=== PATIENT | male | born 1960 | race Caucasian/White ===

== ENCOUNTER 2017-05-29 12:14 | Emergency (ER) | payer BC, OTHER ==
--- NOTE | 2017-05-29 12:30 | ED Physician Documentation ---
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 no cuts nor scratches.) Where injury occurred: Work Timing - onset: How many days ago (3) Timing - duration: Days (3) Timing - details: Abrupt onset, Still present Associated symptoms: Swelling, Discolored (red). No: Weakness, Numbness Contributing factors: No: Anticoagulated Similar symptoms before: Has not had sx before (has had similar in great toe base, but not in knee.) Recently seen: Clinic (seen by PMD for this yesterday and had xrays and given Rx for Keflex due to concern of infection.) Review of Systems Constitutional: denies: Fever Nose: denies: Rhinorrhea / runny nose, Congestion Cardiac: denies: Palpitations GI: reports: Vomiting. denies: Nausea, Diarrhea : denies: Dysuria, Frequency PD PAST MEDICAL HISTORY - Past Medical History Past Medical History: No Musculoskeletal: Gout Other Past Medical History: gout - Past Surgical History Past Surgical History: Yes - Present Medications Home Medications: Ambulatory Orders Medication Instructions Recorded Confirmed Dexamethasone [Decadron] 4 mg PO DAILY #5 tablet 05/29/17 HYDROcod/ACETAM 5/325 [Delaplaine 5/325] 1 tab PO Q6H PRN #15 tablet 05/29/17 Indomethacin 25 mg PO BID #30 capsule 05/29/17 Indomethacin 25 mg PO DAILY 05/29/17 05/29/17 Sulfamethox/Trimeth 800/160 1 tab PO BID 05/29/17 05/29/17 [Bactrim Ds] traMADol [Ultram] 50 mg PO BID 05/29/17 05/29/17 - Allergies Allergies/Adverse Reactions: Allergies Allergy/AdvReac Type Severity Reaction Status Date / Time No Known Drug Allergies Allergy Verified 05/29/17 12:21 - Social History Does the pt smoke?: Yes Smoking Status: Current every day smoker Does the pt drink ETOH?: No Does the pt have substance abuse?: No - Immunizations Immunizations are current?: No PD ED PE NORMAL - Vitals Vital signs reviewed: Yes - General General: Alert and oriented X 3, No acute distress, Well developed/nourished - Neck Neck: Supple, no meningeal sign - Cardiac Cardiac: RRR, No murmur - Respiratory Respiratory: Clear bilaterally - Back Back: No CVA TTP - Derm Derm: Normal color, Warm and dry Results - Vitals Vitals: Oxygen O2 Source Room air PD MEDICAL DECISION MAKING - ED course Complexity details: considered differential (tried tapping fluid from right bursa but did not get any out (perhaps fluid too thick for needle). So presume gout or inflammatory, but can stay on prior abx anyway.), d/w patient Departure - Departure Disposition: Home, Self Care Clinical Impression: Bursitis, prepatellar, right Condition: Stable Record reviewed to determine appropriate education?: Yes Instructions: ED Bursitis Follow-Up: Rupa Elizabeth MD [Primary Care Provider] - Prescriptions: Dexamethasone [Decadron] 4 mg PO DAILY #5 tablet HYDROcod/ACETAM 5/325 [Delaplaine 5/325] 1 tab PO Q6H PRN #15 tablet PRN Reason: Pain Indomethacin 25 mg PO BID #30 capsule Comments: I did not get any fluid out of the knee right here; presume it was thicker or such. So will need to presume inflammatory cause with possibility of infection. Continue the current antibiotic you have. Add Indomethacin and decadron for inflammation, presuming gout or inflammatory bursitis. Add Tylenol or hydrocodone as needed for pains. Recheck if not improved over the next couple of days. Return if fevers, expanding redness, other joints, etc. Discharge Date/Time: 05/29/17 13:29
[2017-05-29] MEDS ORDERED: HYDROcod/ACETAM 5/325 MG TABLET PO STA (12:52)
[2017-05-29] MEDS ORDERED: DEXAMETHASONE 10 MG/ML VIAL PO STA (12:52)
[2017-05-29] MEDS ORDERED: NAPROXEN 250 MG TABLET PO STA (12:52)
[2017-05-29] MEDS ORDERED: NAPROXEN 250 MG TABLET PO ONE (13:17)
[2017-05-29] MEDS ORDERED: HYDROcod/ACETAM 5/325 MG TABLET ONE (13:18)
[2017-05-29] MEDS ORDERED: CHERRY SYRUP 10 ML UDC PO ONE (13:18)
[2017-05-29] MEDS ORDERED: DEXAMETHASONE 10 MG/ML VIAL ONE (13:18)
[2017-05-29 13:31] VITALS: BP 147/94
== END 2017-05-29 13:29 | disposition home or self-care (01) ==
LOC: ED 12:14
DX: M70.41 Prepatellar bursitis, right knee (principal); M10.9 Gout, unspecified; F17.200 Nicotine dependence, unspecified, uncomplicated
CPT/HCPCS: 20610; 99283; A9270

== ENCOUNTER 2017-06-06 16:21 | Outpatient (CLI) | payer OTHER ==
--- NOTE | 2017-06-07 17:45 | MRI Report ---
EXAM: RIGHT KNEE MRI WITHOUT CONTRAST EXAM DATE: 06/06/2017 05:21 PM. CLINICAL HISTORY: KNEE PAIN, RIGHT. COMPARISON: None. TECHNIQUE: Multiplanar, multisequence T1-weighted and fluid-sensitive sequences of the knee without c ontrast. Other: None. FINDINGS: Bones: No fractures or subluxations. Mild osteophytic lipping in the femoral condyles. No marrow alisa a. No bone lesions. Articular Cartilage: Grade 3 cartilaginous degeneration with thinning and irregular surface in the tr ochlea and the medial femoral condyle. Medial Meniscus: The medial meniscus is intact. Lateral Meniscus: The lateral meniscus is intact. Cruciate Ligaments: The anterior and posterior cruciate ligaments are intact. Collateral Ligaments: The medial collateral and lateral collateral ligamentous structures are intact. Tendons: Intrasubstance longitudinal partial-thickness tear in the quadriceps tendon with fusiform en largement and mildly increases signal. The patellar, semimembranosus, and popliteus tendons are unrem arkable. Musculature: Muscular strain with mild edema in the distal part of the quadriceps. No fatty atrophy. Other: Nonspecific mild effusion. No popliteal cyst. There is a lobulated septated ganglion cyst supe rior to the lateral head of gastrocnemius measuring about 3 x 2.1 x 1.6 cm adjacent to the popliteal vessels without surrounding edema. No loose bodies. The medial and lateral retinacula, patellofemora l ligaments and iliotibial band are intact. There is prepatellar bursitis with a prepatellar focal fl uid collection about 3.1 cm in length, 0.9 cm in AP dimension and 2.7 cm in width containing debris a nd with quite extensive adjacent subcutaneous edema which extends to both sides of the knee. The fat pads are unremarkable. IMPRESSION: 1. Intrasubstance longitudinal partial-thickness tear in the quadriceps tendon with fusiform enlargem ent and mildly increases signal. 2. Muscular strain with mild edema in the distal part of the quadriceps. 3. Prepatellar bursitis with a prepatellar focal fluid collection about 3.1 cm in length, 0.9 cm in A P dimension and 2.7 cm in width containing debris and with quite extensive adjacent subcutaneous alisa a which extends to both sides of the knee. 4. Grade 3 cartilaginous degeneration with thinning and irregular surface in the trochlea and the med ial femoral condyle. 5. A lobulated septated ganglion cyst superior to the lateral head of gastrocnemius measuring about 3 x 2.1 x 1.6 cm adjacent to the popliteal vessels without surrounding edema. It is of doubtful clinic al significance. No Bird's cyst. 6. The menisci, collateral and cruciate ligaments are intact. [facility] MUSCULOSKELETAL RADIOLOGY SECTION Referring Provider Line: [phone] SITE ID: [id number]
== END 2017-06-06 16:22 | disposition home or self-care (01) ==
LOC: DI 16:21
PROVIDERS: ATTEND Family Medicine
DX: S76.111A Strain of right quadriceps muscle, fascia and tendon, initial encounter (principal); M70.41 Prepatellar bursitis, right knee; M23.8X1 Other internal derangements of right knee; M67.461 Ganglion, right knee

== ENCOUNTER 2018-09-14 10:40 | Observation (INO) | payer BC, OTHER ==
[2018-09-14] MEDS ORDERED: NITROGLYCERIN SL 0.4 MG TABLET SL STA (10:53)
[2018-09-14] MEDS ORDERED: ASPIRIN CHEW 81 MG TABLET PO STA (10:53)
--- NOTE | 2018-09-14 10:55 | ED Physician Documentation ---
PD HPI CHEST PAIN - Stated complaint Stated Complaint: CHEST PX/LIGHT HEADED - Chief complaint Chief Complaint: Cardiac - History obtained from History obtained from: Patient, Family - History of Present Illness Timing - onset: How many hours ago (2) Timing - onset during: Light activity Timing - duration: Hours (2) Timing - details: Gradual onset Pain level max: 5 Pain level now: 2 Quality: Pressure, Tightness Location: Left chest Radiation: Other (non-radiating) Improved by: Nothing Worsened by: Other (nothing) Associated symptoms: Nausea, Feeling faint / dizzy (lightheaded today). No: Shortness of air, Diaphoresis, Vomiting Similar symptoms before: Has not had sx before Recently seen: Not recently seen - Additional information Additional information: smokes 1.5 ppd. not on any meds at home. Review of Systems Ten Systems: 10 systems reviewed and negative Constitutional: denies: Fever, Chills Ears: denies: Ear pain Nose: denies: Rhinorrhea / runny nose, Congestion Respiratory: denies: Cough, Hemoptysis, Wheezing : denies: Dysuria Skin: denies: Rash Musculoskeletal: denies: Neck pain, Back pain Neurologic: denies: Headache PD PAST MEDICAL HISTORY - Past Medical History Past Medical History: No Musculoskeletal: Gout - Past Surgical History Past Surgical History: Yes - Present Medications Home Medications: Ambulatory Orders Medication Instructions Recorded Confirmed Indomethacin 25 mg PO BID PRN 09/14/18 09/14/18 - Allergies Allergies/Adverse Reactions: Allergies Allergy/AdvReac Type Severity Reaction Status Date / Time No Known Drug Allergies Allergy Verified 09/14/18 10:47 - Living Situation Living Situation: reports: With family Living Arrangement: reports: At home - Social History Does the pt smoke?: Yes Smoking Status: Current every day smoker Does the pt drink ETOH?: No Does the pt have substance abuse?: No - Family History Family history: reports: Non contributory - Immunizations Immunizations are current?: No PD ED PE NORMAL - Vitals Vital signs reviewed: Yes - General General: Alert and oriented X 3, No acute distress, Well developed/nourished - HEENT HEENT: PERRL - Neck Neck: Supple, no meningeal sign - Cardiac Cardiac: RRR, No murmur, Strong equal pulses - Respiratory Respiratory: No respiratory distress, Clear bilaterally - Abdomen Abdomen: Soft, Non tender, Non distended - Back Back: No spinal TTP - Derm Derm: Warm and dry, No rash - Extremities Extremities: No edema, No calf tenderness / cord - Neuro Neuro: Alert and oriented X 3 - Psych Psych: Normal mood, Normal affect Results - Vitals Vitals: Vital Signs - 24 hr 09/14/18 09/14/18 09/14/18 10:44 10:45 10:55 Temperature 36.9 C Heart Rate 87 75 Respiratory 18 16 Rate Blood Pressure 185/115 H 135/88 H Blood Pressure 154/90 H [Right] O2 Saturation 92 99 09/14/18 09/14/18 09/14/18 11:00 11:15 11:30 Temperature Heart Rate 75 75 72 Respiratory 16 16 16 Rate Blood Pressure 146/87 H 138/84 H 115/82 H Blood Pressure [Right] O2 Saturation 95 95 95 09/14/18 09/14/18 11:45 12:16 Temperature Heart Rate 73 68 Respiratory 16 12 Rate Blood Pressure 123/78 125/86 H Blood Pressure [Right] O2 Saturation 93 Oxygen O2 Source Room air - EKG (time done) 1046 Rate: Rate (enter#) (78) Rhythm: NSR [place]: Normal Intervals: Normal RI QRS: Normal Ischemia: Normal ST segments Computer interpretation: Agree with computer - Labs Labs: Laboratory Tests 09/14/18 09/14/18 09/14/18 10:51 10:51 10:51 WBC 14.6 H RBC 5.54 Hgb 17.9 Hct 51.9 MCV 93.6 MCH 32.3 H MCHC 34.5 RDW 13.0 Plt Count 273 MPV 8.3 Neut # (Auto) 9.9 H Lymph # (Auto) 3.1 Taylor # (Auto) 1.4 H Eos # (Auto) 0.1 Baso # (Auto) 0.1 Absolute Nucleated RBC 0.01 Nucleated RBC % 0.1 Sodium 136 Potassium 3.8 Chloride 103 Carbon Dioxide 25 Anion Gap 8.0 BUN 17 Creatinine 0.7 Estimated GFR (MDRD) 116 Glucose 114 H Calcium 9.6 Total Bilirubin 0.4 AST 24 ALT 23 Alkaline Phosphatase 79 Troponin I < 0.04 Total Protein 8.2 Albumin 4.6 Globulin 3.6 Albumin/Globulin Ratio 1.3 Lipase 41 - Rads (name of study) cxr Radiology: Prelim report reviewed, EMP read contemporaneously, See rad report (no acute disease) PD MEDICAL DECISION MAKING - ED course Complexity details: reviewed results, re-evaluated patient, considered different ial, d/w patient, d/w family ED course: 58-year-old male with chest pain today. His heart score is 4. His initial troponin is negative. Will place in observation for rule out MN. Will also require a cardiac stress test in the near future if it is unable to be performed during his hospitalization. given ASA in the ED. Chest pain resolved with ntg and asa. Blood pressure improved. This document was made in part using voice recognition software. While efforts are made to proofread this document, sound alike and grammatical errors may occur. Departure - Departure Disposition: ED Place in Observation Clinical Impression: Chest pain Qualifiers: Chest pain type: unspecified Qualified Code(s): R07.9 - Chest pain, unspecified Condition: Stable
[2018-09-14 11:11] LABS: BASOPHILS # (AUTO) 0.1 10^3/uL (0.0-0.1); BASOPHILS % (AUTO) 0.9 %; EOSINOPHILS # (AUTO) 0.1 10^3/uL (0.0-0.7); EOSINOPHILS % (AUTO) 0.5 %; HGB - HEMOGLOBIN 17.9 g/dL (14.0-18.0); LYMPHOCYTES # (AUTO) 3.1 10^3/uL (1.5-3.5); LYMPHOCYTES % (AUTO) 21.1 %; MEAN CORPUSCULAR HEMOGLOBIN 32.3 pg (27.0-31.0); MEAN CORPUSCULAR HGB CONC 34.5 g/dL (32.0-36.0); MEAN CORPUSCULAR VOLUME 93.6 fL (80.0-94.0); MEAN PLATELET VOLUME 8.3 fL (7.4-11.4); MONOCYTES # (AUTO) 1.4 10^3/uL (0.0-1.0); MONOCYTES % (AUTO) 9.5 %; NEUTROPHILS # (AUTO) 9.9 10^3/uL (1.5-6.6); PLT - PLATELET COUNT 273 10^3/uL (130-450); RED BLOOD COUNT 5.54 10^6/uL (4.70-6.10); WHITE BLOOD COUNT 14.6 x10^3/uL (4.8-10.8)
[2018-09-14 11:42] LABS: ALBUMIN 4.6 g/dL (3.2-5.5); ALBUMIN/GLOBULIN RATIO 1.3 (1.0-2.2); BILIRUBIN,TOTAL 0.4 mg/dL (0.2-1.0); CALCIUM 9.6 mg/dL (8.5-10.3); CREATININE 0.7 mg/dL (0.6-1.2); TOTAL PROTEIN 8.2 g/dL (6.7-8.2)
--- NOTE | 2018-09-14 12:19 | XRAY Report ---
Reason: Chest Pain Procedure Date: 09/14/2018 Accession Number: [id number] / [id number] Procedure: XR - Chest 1 View X-Ray CPT Code: 24617 FULL RESULT: EXAM: CHEST RADIOGRAPHY EXAM DATE: 09/14/2018 12:06 PM. CLINICAL HISTORY: Chest Pain. COMPARISON: None. TECHNIQUE: 1 view. FINDINGS: Lungs/Pleura: No focal opacities evident. No pleural effusion. No pneumothorax. Mediastinum: Within exam limitations, the cardiomediastinal contour is normal. Other: None. IMPRESSION: 1. No acute disease in the chest. [facility]
[2018-09-14] MEDS ORDERED: PROCHLORPERAZINE 10 MG/2 ML VIAL IVP PRN (13:22)
[2018-09-14] MEDS ORDERED: ACETAMINOPHEN 325 MG TABLET PO PRN (13:22)
[2018-09-14] MEDS ORDERED: ZOLPIDEM 5 MG TABLET PO PRN (13:22)
[2018-09-14] MEDS ORDERED: SODIUM CHLORIDE FLUSH 0.9% 10 ML SYRINGE IVP PRN (13:22)
[2018-09-14] MEDS ORDERED: NITROGLYCERIN SL 0.4 MG TABLET SL PRN (13:25)
[2018-09-14] MEDS ORDERED: NICOTINE 21 MG PATCH TOP STA (13:32)
[2018-09-14] MEDS: SODIUM CHLORIDE FLUSH 0.9% 10 ML SYRINGE IVP SCH ×2 (17:33→23:45)
[2018-09-14] MEDS: FAMOTIDINE 20 MG TABLET PO SCH (20:23)
--- NOTE | 2018-09-15 04:26 | HISTORY & PHYSICAL EXAMINATION ---
DATE OF SERVICE: 09/14/2018 Physician: Nicole Hough MD HISTORY OF PRESENT ILLNESS: This is a 58-year-old, white male with a history of smoking, elevated cholesterol but not on treatment, and obesity. The patient presents with chest pain that is unrelenting over approximately 2 hours. 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 This morning when he woke up, he had no appetite and felt "blah." He got a little short of breath with his typical activity starting work, and then developed his chest discomfort, which lasted much longer than the typical several minutes. It was unrelenting for approximately 2 hours. Because of the combination of symptoms, he went home from work to rest, called his , and she came and picked him up and took him to the emergency room. He was given 4 baby aspirin, as well as 1 sublingual nitroglycerin in the ER. His chest pain went from a 4/10 down to a 1-2/10, but never completely went away since it started this morning. The pain is not positional or pleuritic. There is no GI complaint with it, and he is not short of breath at rest. There has been no diaphoresis or any palpitations. He has noticed that it feels better when the photovoltaic fabrication technician was placing the probe over his intercostal space and, following that, he also can press on a certain area and make the pain disappear. PAST MEDICAL HISTORY: None. ALLERGIES: NONE. MEDICATIONS 1. Naprosyn p.r.n. 2. Indomethacin p.r.n. 3. Tylenol p.r.n. FAMILY HISTORY: Father of sudden cardiac arrest at the age of 77. Mother of COPD at age of 72. He has 1 son in his 30s with some type of cardiac condition, but he does not know what. He has a brother and a sister who have no cardiac complaints. SOCIAL HISTORY: He is a 1-1/2 pack a day smoker, but states that he does not inhale the cigarette nearly at all. He used to be a 3 beer drinker a day, but now has decreased down to nothing or only social alcohol intake. REVIEW OF SYSTEMS: A comprehensive review of systems was performed and the pertinent positives are listed above. The rest are negative. PHYSICAL EXAMINATION GENERAL: White male who appears in no distress, despite having 1-2/10 chest discomfort currently. VITAL SIGNS: Blood pressure 140/80, heart rate in the 60s in sinus rhythm, afebrile, room air saturation 95%. HEENT: Unremarkable. NECK: Without JVD or carotid bruits. LUNGS: Clear. HEART: Sounds normal. No murmur, rub or gallop. ABDOMEN: Soft, obese. No organomegaly and normal bowel sounds. EXTREMITIES: No clubbing, cyanosis, or edema. NEUROLOGIC: Intact. LABORATORY DATA: Troponin is not detectable x1. Electrolytes normal. BUN and creatinine normal. Liver tests normal. Lipase normal. White blood count 14.6, hemoglobin 17, platelet count normal at 273. No INR was done. Chest x-ray unremarkable. EKG: Normal sinus rhythm and within normal limits. IMPRESSION/DIAGNOSES 1. Chest pain. 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 2. Tobacco abuse. 3. Elevated cholesterol history. PLAN: Place the patient in Observation status, on telemetry. Cycle troponins x3. Obtain an Echo to rule out pericardial effusion or any regional LV wall motion abnormalities. If the troponins and Echo are unremarkable, then proceed to a stress test in the morning. Check a fasting lipid panel in the morning. Begin a nicotine patch topically. Continue with baby aspirin daily and sublingual nitroglycerin p.r.n. CODE STATUS: FULL CODE. DEEP VENOUS THROMBOSIS PROPHYLAXIS: Pharmacotherapy with Lovenox. ATTESTATION: The patient is expected to be discharged or transferred to another facility within 96 hours: Yes. cc: Rupa Elizabeth MD TD: 09/14/2018 17:52 [facility]
[2018-09-15 06:09] LABS: BUN - BLOOD UREA NITROGEN 15 mg/dL (6-20); CALCIUM 8.8 mg/dL (8.5-10.3); CARBON DIOXIDE - CO2 23 mmol/L (21-32); CHLORIDE 104 mmol/L (101-111); CHOL/HDL RATIO 8.7 (<5.0); CHOLESTEROL 243 mg/dL; CREATININE 0.7 mg/dL (0.6-1.2); GFR - MDRD 116 (>89); GLUCOSE 112 mg/dL (70-100); HDL CHOLESTEROL 28 mg/dL; LDL CHOLESTEROL,CALCULATED 157 mg/dL; LDL/HDL RATIO 5.6 (<3.6); SODIUM 135 mmol/L (135-145); VLDL CHOLESTEROL 58 mg/dL
[2018-09-15] MEDS: SODIUM CHLORIDE FLUSH 0.9% 10 ML SYRINGE IVP SCH (08:32)
[2018-09-15] MEDS: FAMOTIDINE 20 MG TABLET PO SCH (08:32)
[2018-09-15] MEDS ORDERED: ENOXAPARIN 40 MG/0.4 ML SYRINGE SUBQ SCH (09:00)
[2018-09-15] MEDS ORDERED: POLYETHYLENE GLYCOL 3350 17 GM PACKET PO SCH (09:00)
[2018-09-15] MEDS ORDERED: ASPIRIN CHEW 81 MG TABLET PO SCH (09:00)
--- NOTE | 2018-09-15 13:12 | Nuclear Medicine Report ---
Reason: Chest pain Procedure Date: 09/15/2018 Accession Number: [id number] / [id number] Procedure: NM - Myocardial Perfusion STR/RST CPT Code: FULL RESULT: EXAM: SINGLE-ISOTOPE EXERCISE STRESS TEST. SINGLE-ISOTOPE AND ONE-DAY REST/STRESS MYOCARDIAL PERFUSION SCANS WITH TOMOGRAPHIC IMAGING, QUANTITATIVE ANALYSIS, WALL MOTION ANALYSIS AND CALCULATION OF EJECTION FRACTION. EXAM DATE: 09/15/2018 12:41 PM. CLINICAL HISTORY: Chest pain. COMPARISON: None. TECHNIQUE: A rest myocardial perfusion scan was done with tomography after the intravenous administration of 9.6 mCi Tc-99m sestamibi. After an appropriate delay, a treadmill exercise stress was performed according to department protocol. The patient exercised for 6 minutes and 40 seconds. The maximum heart rate was 146 bpm, which was 89% of the maximum predicted heart rate of 163 bpm. At approximately peak heart rate, 42.4 mCi of Tc-99m sestamibi was injected for stress myocardial perfusion scan. Motion correction was applied when appropriate. Gated tomographic images were obtained for wall motion analysis and computation of left ventricular ejection fraction. FINDINGS: No fixed or reversible perfusion defects are evident. Computer analysis: Summed stress score 2 Summed rest score 0 Summed difference score 2 Wall motion analysis demonstrates no focal wall motion abnormality The left ventricular end-diastolic volume is 91 cc. The left ventricular end-systolic volume is 33 cc. The left ventricular ejection fraction is calculated to be 64%. IMPRESSION: 1. No scintigraphic findings to indicate myocardial ischemia. Negative for infarct. 2. Normal left ventricular ejection fraction of 64%. 3. Normal segmental and global wall motion. 4. Normal left ventricular cavity size, no change with stress. 5. Based on computer analysis, normal exam with mild ischemia. Based on visual analysis, this is believed to be an overestimate. [facility]
--- NOTE | 2018-09-15 13:31 | CARDIAC PROCEDURE NOTE ---
DATE OF SERVICE: 09/15/2018 Physician: Nicole Hough MD INDICATIONS: Chest pain. CARDIAC RISK FACTORS: Male gender, family history of heart disease, smoker, hyperlipidemia uncontrolled. SUMMARY: After signing informed consent, the patient underwent a Saturnino - protocol treadmill stress test with nuclear myocardial imaging. Resting heart rate 67, peak heart rate 146 (90% predicted maximum heart rate for age). Resting blood pressure 146/82. Peak blood pressure 210/85. The patient exercised for 6 minutes and 30 seconds on a Saturnino-protocol treadmill stress test. He achieved 90% PMHR and 8 METS. The patient had baseline 1-2/10 chest pain. This increased to 4/10 at peak. In recovery, this dropped back down to 1-2/10 after 4 minutes. The patient had moderate shortness of breath at peak and described his difficulty level as "very hard." O2 saturation at peak was 94% on room air. Baseline EKG: Normal sinus rhythm and within normal limits. EKG AT PEAK: [address] depressions in the inferior leads and leads V5 and V6. SUMMARY: 1. Fair exercise tolerance. 2. Excessively hypertensive blood pressure response to exercise. 3. Atypical chest pain, was present at rest, despite a normal EKG. Chest pain did increase with exertion, however. 4. Borderline abnormal ischemic changes by EKG criteria at an adequate level of stress. 5. Nuclear images reported separately. TD: 09/15/2018 12:59 MTDD
--- NOTE | 2018-09-15 13:44 | Discharge Plan ---
Discharge Plan Disposition: 01 Home, Self Care Condition: Stable Diet: Cardiac Activity Restrictions: Activity as Tolerated Shower Restrictions: No Driving Restrictions: No Instruction Topics: Heart Risk, Cholesterol Lifestyle Change, Foods Heart Healthy, ED Hypertension New Begin Tx Additional Instructions or Follow Up instructions: You were in Observation for evaluating chest pain. The blood tests, EKG and Echo showed no heart attack and the stress test was negative for coronary blockages. The pain did sound atypical for cardiac pain too, since it was affected by pressing on the spot on your chest. You can take some Motrin or Aleve, to treat presumed musculoskeletal pain or inflammation. You DO have risk factors for developing coronary artery blockages however, and these 4 should get managed, in order to decrease your chance of getting coronary heart disease. 1) Change your diet to improve your high cholesterol and triglycerides, with less red meat, less milk and less potatoes. You may need medications too. 2) Stop smoking 3) Lose weight 4) Decrease your salt intake and have your high blood pressure managed by your PCP. Consider taking 1 baby aspirin daily lifelong, for heart attack and stroke prevention. See your PCP in follow-up in 1-2 weeks. If you have new or worsening symptoms, come to the ER. No Smoking: If you smoke, Please STOP! Call for help. Follow-up with: Rupa Elizabeth MD [Primary Care Provider] -
[2018-09-15 14:05] VITALS: BP 158/78
--- NOTE | 2018-09-17 19:52 | DISCHARGE SUMMARY ---
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 The patient presented with complaints of chest pain that were unrelenting over 2 hours without associated symptoms. The chest pain was similar to prior episodes that began 3 months ago when he thought he had pulled a muscle. In the past they only lasted under a minute, but because of 2 hours of symptoms, he presented to the emergency room. There was also a complaint of fatigue over a week and new dyspnea during construction work. He was placed in Observation for evaluation of the above symptoms. HOSPITAL COURSE AND DISCHARGE DIAGNOSES: 1. Chest pain. There were features that sounded like angina but a strong nonanginal feature was that the pain subsided when it was pressed on and despite receiving nitroglycerin sublingual with improvement from 12/08 to 10/10 discomfort, the pain continued throughout the night and the next morning. Despite this persistent symptom, his troponins were negative x3. He did have risk factors for coronary disease, however, including sudden cardiac in his father at the age of 77. He therefore underwent stress testing while here. The patient completed 8 METS and achieved 90% predicted maximum heart rate on a treadmill stress test. There was no worsening of his constant chest pain and he had mild shortness of breath. The EKG portion showed nonspecific inferolateral ST scooping changes, but his nuclear myocardial perfusion scan showed no evidence of reversible ischemia and normal ejection fraction. 2. Tobacco abuse. The patient was on a nicotine patch while here and was advised to discontinue this since he is a 1.5 pack-a-day smoker. 3. Elevated cholesterol history. The patient reported being told in the past that it was elevated, but never being on treatment. A lipid panel was done here. This showed total cholesterol 243, LDL 157, triglycerides 292 and HDL 28. I advised that he adjust his diet for better risk factor management, to include less red meat, less dairy products (milk) and less starches (potatoes). LABORATORY AND IMAGING: Reviewed and summarized above. MEDICATIONS AT THE TIME OF DISCHARGE: 1. Tylenol p.r.n. 2. Indomethacin p.r.n. 3. Naprosyn p.r.n. 4. One baby aspirin daily was advised to start now and to be used lifelong. CONDITION AT DISCHARGE: Stable. PHYSICAL EXAMINATION: VITAL SIGNS: Blood pressure 158/78, pulse of 82, afebrile, room air saturation 94%. HEENT: Unremarkable. NECK: Without JVD or carotid bruits. CHEST: Clear. HEART: Sounds normal. ABDOMEN: Obese, benign. EXTREMITIES: Without edema. NEUROLOGIC: Intact. FOLLOWUP: He was advised to see his PCP for management of this presumed musculoskeletal pain and for further evaluation and management if needed. CODE STATUS: FULL CODE. Time required to complete the entire discharge, chart review, patient education, dictation: 45 minutes. cc: Rupa Elizabeth MD TD: 09/17/2018 19:03 MTDD
== END 2018-09-15 14:35 | disposition home or self-care (01) ==
LOC: ED 10:40 → OBS 13:22
PROVIDERS: ADMIT Internal Medicine; ATTEND Internal Medicine
DX: R07.9 Chest pain, unspecified (principal); F17.210 Nicotine dependence, cigarettes, uncomplicated; E78.00 Pure hypercholesterolemia, unspecified; Z71.3 Dietary counseling and surveillance; E66.9 Obesity, unspecified; Z68.34 Body mass index [BMI] 34.0-34.9, adult; I10 Essential (primary) hypertension; Z82.49 Family history of ischemic heart disease and other diseases of the circulatory system; M10.9 Gout, unspecified
CPT/HCPCS: 36415; 71045; 78452; 80048; 80053; 80061; 83690; 84484; 85025; 93005; 93017; 93306; 96372; 99284; 99285; A9270; A9500; G0378; J1650; 83721

== ENCOUNTER 2020-03-11 07:54 | Emergency (ER) | payer BC ==
--- NOTE | 2020-03-11 07:56 | ED Physician Documentation ---
PD HPI CHEST PAIN - Stated complaint Stated Complaint: CHEST PX - History obtained from History obtained from: Patient - History of Present Illness Timing - onset: How many days ago (3-4) Timing - onset during: Rest. No: Exertion (He has not noticed the pain with exertion. He did some vigorous gardening yesterday and states he "got up a sweat" and felt fine. He is noticed the pain mainly at rest and some with deep breathing. No cough/URI symptoms. No noted injury.) Timing - duration: Days Timing - details: Gradual onset, Still present (more consistent dull aching this morning. And he took BP (which he does not do very often) and noted it to be elevated, which concerned him more in conjunction with the pain.), Waxing and waning Quality: Aching, Sharp, Pain. No: Tightness, Tearing Location: Substernal, Left chest Radiation: No: Neck, Back Improved by: No: Rest Worsened by: No: Exertion Associated symptoms: No: Shortness of air, Nausea, Feeling faint / dizzy, General Weakness, Cough Similar symptoms before: No diagnosis (He had a similar pain about a year and a half ago and was evaluated in the emergency department and overnight in the hospital with a rule out [place] by enzymes and then a nuclear stress test that did not show any reversible ischemia. He has not had any exertional symptoms meanwhile.) Recently seen: Not recently seen Review of Systems Constitutional: denies: Fever, Chills, Myalgias Nose: denies: Rhinorrhea / runny nose, Congestion Throat: denies: Sore throat Cardiac: reports: Chest pain / pressure. denies: Palpitations, Pedal edema, Calf pain Respiratory: denies: Dyspnea, Cough GI: denies: Abdominal Pain, Nausea, Vomiting : denies: Dysuria, Frequency Skin: denies: Rash, Lesions Neurologic: denies: Generalized weakness, Focal weakness, Numbness, Near syncope, Altered mental status, Headache Endocrine: denies: Weight loss, Weight gain PD PAST MEDICAL HISTORY - Past Medical History Cardiovascular: None Respiratory: None Neuro: None Endocrine/Autoimmune: None Musculoskeletal: Gout - Past Surgical History Past Surgical History: Yes Ortho: Other - Present Medications Home Medications: Ambulatory Orders Medication Instructions Recorded Confirmed Acetaminophen 325 - 650 mg PO PRN PRN 09/14/18 09/14/18 Naproxen 375 mg PO BID #20 tablet 07/12/20 - Allergies Allergies/Adverse Reactions: Allergies Allergy/AdvReac Type Severity Reaction Status Date / Time No Known Drug Allergies Allergy Verified 03/11/20 08:01 - Social History Does the pt smoke?: Yes Smoking Status: Current every day smoker Does the pt drink ETOH?: Yes ETOH Use: Wine (occasional glass) Does the pt have substance abuse?: Yes Substance Use and Type: Marijuana - Immunizations Immunizations are current?: No PD ED PE NORMAL - Vitals Vital signs reviewed: Yes - General General: Alert and oriented X 3, No acute distress, Well developed/nourished - HEENT HEENT: Pharynx benign - Neck Neck: Supple, no meningeal sign, No adenopathy - Cardiac Cardiac: RRR, No murmur - Respiratory Respiratory: Clear bilaterally, Other (some minimal chestwall tenderness left sternal border with rash nor redness. ) - Abdomen Abdomen: Soft, Non tender - Derm Derm: Normal color, Warm and dry - Extremities Extremities: No deformity, No tenderness to palpate, Normal ROM s pain, No edema, No calf tenderness / cord - Neuro Neuro: Alert and oriented X 3, No motor deficit, Normal speech Results - Vitals Vitals: Vital Signs - 24 hr 03/11/20 03/11/20 03/11/20 07:58 08:01 08:31 Temperature 36.8 C Heart Rate 73 72 66 Respiratory 18 18 16 Rate Blood Pressure 181/99 H 181/99 H 137/76 H O2 Saturation 97 95 99 03/11/20 03/11/20 09:04 09:27 Temperature 36.8 C Heart Rate 62 65 Respiratory 16 16 Rate Blood Pressure 123/100 H 132/78 H O2 Saturation 100 100 Oxygen O2 Source Room air - EKG (time done) 07:58 Rate: Rate (enter#) (68) Rhythm: NSR [place]: Normal Intervals: Normal VT QRS: Normal Ischemia: Normal ST segments. No: ST elevation c/w ischemia, ST depression Compare to prior EKG: Unchanged from prior EKG - Labs Labs: Laboratory Tests 03/11/20 03/11/20 03/11/20 08:00 08:00 08:00 WBC 13.2 H RBC 5.42 Hgb 17.9 Hct 51.8 MCV 95.6 H MCH 33.0 H MCHC 34.6 RDW 12.5 Plt Count 262 MPV 9.9 Neut # (Auto) 8.4 H Lymph # (Auto) 3.3 Hodgeman # (Auto) 1.2 H Eos # (Auto) 0.2 Baso # (Auto) 0.1 Absolute Nucleated RBC 0.00 Nucleated RBC % 0.0 Sodium 138 Potassium 3.9 Chloride 100 L Carbon Dioxide 26 Anion Gap 12.0 BUN 16 Creatinine 0.9 Estimated GFR (MDRD) 87 L Glucose 134 H Calcium 9.3 Magnesium Total Bilirubin 1.1 H AST 19 ALT 20 Alkaline Phosphatase 78 Troponin I High Sens 4.6 B-Natriuretic Peptide Total Protein 7.7 Albumin 4.4 Globulin 3.3 Albumin/Globulin Ratio 1.3 Lipase 39 03/11/20 03/11/20 08:00 08:00 WBC RBC Hgb Hct MCV MCH MCHC RDW Plt Count MPV Neut # (Auto) Lymph # (Auto) Hodgeman # (Auto) Eos # (Auto) Baso # (Auto) Absolute Nucleated RBC Nucleated RBC % Sodium Potassium Chloride Carbon Dioxide Anion Gap BUN Creatinine Estimated GFR (MDRD) Glucose Calcium Magnesium 2.3 Total Bilirubin AST ALT Alkaline Phosphatase Troponin I High Sens B-Natriuretic Peptide 15 Total Protein Albumin Globulin Albumin/Globulin Ratio Lipase - Rads (name of study) chest xray Radiology: Prelim report reviewed, See rad report (normal) PD MEDICAL DECISION MAKING - ED course Complexity details: re-evaluated patient (no change with GI cocktail. Normal labs. Negative ECG and Trop in setting of ongoing pain overnight/this morning. This would be conclusive to rule out [place] at this point. Does not sound anginal. ), considered differential, d/w patient Departure - Departure Disposition: 01 Home, Self Care Clinical Impression: Chest pain of uncertain etiology, Elevated blood pressure reading Condition: Stable Record reviewed to determine appropriate education?: Yes Instructions: ED Chest Pain Atypical Unkn Cause, ED Hypertension Poss Follow-Up: Iraj Ambriz DO [Primary Care Provider] - Prescriptions: Naproxen 375 mg PO BID #20 tablet Comments: No signs of heart or lung causes of your pain. Your blood pressure was transiently elevated. I would check it once or twice daily but no more than that over the next week or 2 and see what the trend of it is. Follow-up with your primary care if it is more consistently elevated to suggest the need for blood pressure medicine. We typically would not initiate that based on readings just from 1 day. I presume your pain is musculoskeletal and suggest using an anti-inflammatory such as naproxen or ibuprofen 2-3 times a day for the next week. Recheck if not improving during that time and follow-up if persistent. Discharge Date/Time: 03/11/20 09:29
[2020-03-11 08:14] LABS: BASOPHILS # (AUTO) 0.1 10^3/uL (0.0-0.1); BASOPHILS % (AUTO) 0.8 %; EOSINOPHILS # (AUTO) 0.2 10^3/uL (0.0-0.7); EOSINOPHILS % (AUTO) 1.4 %; HGB - HEMOGLOBIN 17.9 g/dL (14.0-18.0); LYMPHOCYTES # (AUTO) 3.3 10^3/uL (1.5-3.5); LYMPHOCYTES % (AUTO) 25.2 %; MEAN CORPUSCULAR HGB CONC 34.6 g/dL (32.0-36.0); MEAN CORPUSCULAR VOLUME 95.6 fL (80.0-94.0); MEAN PLATELET VOLUME 9.9 fL (7.4-11.4); MONOCYTES # (AUTO) 1.2 10^3/uL (0.0-1.0); MONOCYTES % (AUTO) 8.8 %; NEUTROPHILS # (AUTO) 8.4 10^3/uL (1.5-6.6); NEUTROPHILS % (AUTO) 63.4 %; PLT - PLATELET COUNT 262 10^3/uL (130-450); RED BLOOD COUNT 5.42 10^6/uL (4.70-6.10); RED CELL DISTRIBUTION WIDTH 12.5 % (12.0-15.0); WHITE BLOOD COUNT 13.2 x10^3/uL (4.8-10.8)
[2020-03-11] MEDS ORDERED: MAG HYDROX/AL HYDROX/SIMETH 30 ML UDC PO STA (08:14)
[2020-03-11] MEDS ORDERED: LIDOCAINE VISCOUS 2% 15 ML UDC MM STA (08:14)
[2020-03-11 08:27] LABS: ALBUMIN 4.4 g/dL (3.2-5.5); ALBUMIN/GLOBULIN RATIO 1.3 (1.0-2.2); BILIRUBIN,TOTAL 1.1 mg/dL (0.2-1.0); CALCIUM 9.3 mg/dL (8.5-10.3); CREATININE 0.9 mg/dL (0.6-1.2); TOTAL PROTEIN 7.7 g/dL (6.7-8.2)
[2020-03-11] MEDS ORDERED: KETOROLAC 30 MG/ML VIAL IVP STA (08:51)
--- NOTE | 2020-03-11 08:55 | XRAY Report ---
PROCEDURE: Chest 1 View X-Ray INDICATIONS: Chest pain TECHNIQUE: One view of the chest was acquired. COMPARISON: Chest x-ray 09/14/2019 FINDINGS: Surgical changes and devices: None. Lungs and pleura: No pleural effusions or pneumothorax. Lungs are clear. Mediastinum: Mediastinal contours appear normal. Heart size is normal. Bones and chest wall: No suspicious bony lesions. Overlying soft tissues appear unremarkable. IMPRESSION: No acute pulmonary process. Reviewed by: Irlanda Adorno MD on 03/11/2020 8:53 AM PDT Approved by: Irlanda Adorno MD on 03/11/2020 8:53 AM PDT Station ID: [id number]
[2020-03-11 09:28] VITALS: BP 132/78
== END 2020-03-11 09:29 | disposition home or self-care (01) ==
LOC: ED 07:54
DX: R07.89 Other chest pain (principal); R03.0 Elevated blood-pressure reading, without diagnosis of hypertension; F17.200 Nicotine dependence, unspecified, uncomplicated
CPT/HCPCS: 36415; 71045; 80053; 83690; 83735; 83880; 84484; 85025; 93005; 96374; 99284; A9270

== ENCOUNTER 2022-01-13 09:19 | Outpatient (CLI) | payer OTHER ==
[2022-01-13 11:41] LABS: BASOPHILS # (AUTO) 0.1 10^3/uL (0.0-0.1); BASOPHILS % (AUTO) 0.7 %; EOSINOPHILS # (AUTO) 0.1 10^3/uL (0.0-0.7); EOSINOPHILS % (AUTO) 0.9 %; HCT - HEMATOCRIT 52.5 % (42.0-52.0); HGB - HEMOGLOBIN 17.9 g/dL (14.0-18.0); LYMPHOCYTES # (AUTO) 3.5 10^3/uL (1.5-3.5); LYMPHOCYTES % (AUTO) 29.5 %; MEAN CORPUSCULAR HEMOGLOBIN 33.1 pg (27.0-31.0); MEAN CORPUSCULAR HGB CONC 34.1 g/dL (32.0-36.0); MEAN CORPUSCULAR VOLUME 97.2 fL (80.0-94.0); MEAN PLATELET VOLUME 10.6 fL (7.4-11.4); MONOCYTES # (AUTO) 1.1 10^3/uL (0.0-1.0); MONOCYTES % (AUTO) 9.5 %; NEUTROPHILS # (AUTO) 6.9 10^3/uL (1.5-6.6); NEUTROPHILS % (AUTO) 59.1 %; PLT - PLATELET COUNT 263 10^3/uL (130-450); RED CELL DISTRIBUTION WIDTH 13.1 % (12.0-15.0); WHITE BLOOD COUNT 11.7 x10^3/uL (4.8-10.8)
[2022-01-13 12:10] LABS: ALBUMIN 4.2 g/dL (3.2-5.5); ALBUMIN/GLOBULIN RATIO 1.2 (1.0-2.2); ALKALINE PHOSPHATASE 70 IU/L (42-121); ALT ALANINE AMINOTRANSFERASE 26 IU/L (10-60); AST ASPARTATE AMINOTRANSFERASE 24 IU/L (10-42); BILIRUBIN,TOTAL 0.7 mg/dL (0.2-1.0); BUN - BLOOD UREA NITROGEN 12 mg/dL (6-20); CALCIUM 9.3 mg/dL (8.5-10.3); CARBON DIOXIDE - CO2 26 mmol/L (21-32); CHLORIDE 103 mmol/L (101-111); CHOL/HDL RATIO 8.4 (<5.0); CHOLESTEROL 284 mg/dL; CREATININE 0.7 mg/dL (0.6-1.2); ESTIMATED AVERAGE GLUCOSE 128 mg/dL (70-100); GFR - MDRD 115 (>89); GLUCOSE 119 mg/dL (70-100); HDL CHOLESTEROL 34 mg/dL; HEMOGLOBIN A1c% 6.1 % (4.27-6.07); LDL CHOLESTEROL,CALCULATED 192 mg/dL; LDL/HDL RATIO 5.6 (<3.6); POTASSIUM 4.7 mmol/L (3.5-5.0); SODIUM 138 mmol/L (135-145); TOTAL PROTEIN 7.8 g/dL (6.7-8.2); TRIGLYCERIDES 289 mg/dL; VLDL CHOLESTEROL 58 mg/dL
[2022-01-13 12:15] LABS: THYROID STIMULATING HORMONE 1.23 uIU/mL (0.34-5.60)
== END 2022-01-13 09:20 | disposition home or self-care (01) ==
LOC: LAB.N 09:19
PROVIDERS: ATTEND Physician Assistant
DX: I10 Essential (primary) hypertension (principal); E78.5 Hyperlipidemia, unspecified; R73.9 Hyperglycemia, unspecified; Z13.29 Encounter for screening for other suspected endocrine disorder
CPT/HCPCS: 36415; 80053; 80061; 83036; 83721; 84443; 85025

== ENCOUNTER 2022-02-28 07:59 | Outpatient (CLI) | payer OTHER ==
--- NOTE | 2022-02-28 14:47 | CT Report ---
PROCEDURE: Low Dose Lung Cancer Screen INDICATIONS: SCREENING FOR LUNG CA TECHNIQUE: Noncontrast low-dose images were acquired from the pulmonary apices to the posterior costophrenic ang les. Multiplanar MIP reformats were then acquired. For radiation dose reduction, the following was used: automated exposure control, adjustment of mA and/or kV according to patient size. COMPARISON: None. FINDINGS: Image quality: Excellent. Lungs and pleura: No suspicious pulmonary nodule or mass. No acute airspace opacity. Mild apical pre dominant centrilobular emphysematous changes. Mediastinum: Normal heart size. No pericardial effusion. Normal caliber thoracic aorta and main pulmo nary trunk. No mediastinal lymphadenopathy. Bones and chest wall: No suspicious lytic or osseous lesion. No suspicious threshold enlarged axillar y lymph node. Abdomen: Visualized upper abdomen solid organs and bowel loops appear normal in the ab sence of contrast. IMPRESSION: No suspicious pulmonary nodule or mass. Lung-RADS Category 1. Recommendation: Continued annual low-dose screening CT of the chest. Reviewed by: Balbir Junior MD on 02/28/2022 2:46 PM PDT Approved by: Balbir Junior MD on 02/28/2022 2:46 PM PDT Station ID: [id number]
== END 2022-02-28 08:00 | disposition home or self-care (01) ==
LOC: DI 07:59
PROVIDERS: ATTEND Physician Assistant
DX: Z12.2 Encounter for screening for malignant neoplasm of respiratory organs (principal)

== ENCOUNTER 2022-03-13 08:38 | Outpatient (CLI) | payer OTHER ==
[2022-03-13 12:13] LABS: ALBUMIN 4.3 g/dL (3.2-5.5); ALBUMIN/GLOBULIN RATIO 1.3 (1.0-2.2); ALKALINE PHOSPHATASE 72 IU/L (42-121); ALT ALANINE AMINOTRANSFERASE 22 IU/L (10-60); AST ASPARTATE AMINOTRANSFERASE 23 IU/L (10-42); BILIRUBIN,TOTAL 0.7 mg/dL (0.2-1.0); BUN - BLOOD UREA NITROGEN 11 mg/dL (6-20); CALCIUM 9.6 mg/dL (8.5-10.3); CARBON DIOXIDE - CO2 27 mmol/L (21-32); CHLORIDE 104 mmol/L (101-111); CHOL/HDL RATIO 6.3 (<5.0); CHOLESTEROL 200 mg/dL; CREATININE 0.7 mg/dL (0.6-1.2); GFR - MDRD 115 (>89); GLUCOSE 117 mg/dL (70-100); HDL CHOLESTEROL 32 mg/dL; LDL CHOLESTEROL,CALCULATED 106 mg/dL; LDL/HDL RATIO 3.3 (<3.6); POTASSIUM 4.5 mmol/L (3.5-5.0); SODIUM 140 mmol/L (135-145); TOTAL PROTEIN 7.7 g/dL (6.7-8.2); TRIGLYCERIDES 308 mg/dL; VLDL CHOLESTEROL 62 mg/dL
== END 2022-03-13 08:39 | disposition home or self-care (01) ==
LOC: LAB.N 08:38
PROVIDERS: ATTEND Physician Assistant
DX: E78.5 Hyperlipidemia, unspecified (principal); Z51.81 Encounter for therapeutic drug level monitoring
CPT/HCPCS: 36415; 80053; 80061; 83721

== ENCOUNTER 2022-06-05 08:25 | Outpatient (CLI) | payer OTHER ==
[2022-06-05 12:30] LABS: ALBUMIN 4.1 g/dL (3.2-5.5); ALBUMIN/GLOBULIN RATIO 1.3 (1.0-2.2); ALKALINE PHOSPHATASE 85 IU/L (42-121); ALT ALANINE AMINOTRANSFERASE 26 IU/L (10-60); AST ASPARTATE AMINOTRANSFERASE 23 IU/L (10-42); BILIRUBIN,TOTAL 0.5 mg/dL (0.2-1.0); BUN - BLOOD UREA NITROGEN 15 mg/dL (6-20); CALCIUM 8.9 mg/dL (8.5-10.3); CARBON DIOXIDE - CO2 29 mmol/L (21-32); CHLORIDE 103 mmol/L (101-111); CHOL/HDL RATIO 6.2 (<5.0); CHOLESTEROL 180 mg/dL; CREATININE 0.8 mg/dL (0.6-1.2); GFR - MDRD 99 (>89); GLUCOSE 122 mg/dL (70-100); HDL CHOLESTEROL 29 mg/dL; LDL CHOLESTEROL,CALCULATED 98 mg/dL; LDL/HDL RATIO 3.4 (<3.6); POTASSIUM 4.4 mmol/L (3.5-5.0); SODIUM 137 mmol/L (135-145); TOTAL PROTEIN 7.2 g/dL (6.7-8.2); TRIGLYCERIDES 264 mg/dL; VLDL CHOLESTEROL 53 mg/dL
[2022-06-05 12:31] LABS: ESTIMATED AVERAGE GLUCOSE 123 mg/dL (70-100); HEMOGLOBIN A1c% 5.9 % (4.27-6.07)
== END 2022-06-05 08:26 | disposition home or self-care (01) ==
LOC: LAB.N 08:25
PROVIDERS: ATTEND Physician Assistant
DX: Z51.81 Encounter for therapeutic drug level monitoring (principal); R73.03 Prediabetes
CPT/HCPCS: 36415; 80053; 80061; 83036; 83721

== ENCOUNTER 2023-02-26 08:35 | Outpatient (CLI) | payer OTHER ==
[2023-02-26 12:13] LABS: ALBUMIN 4.1 g/dL (3.2-5.5); ALBUMIN/GLOBULIN RATIO 1.1 (1.0-2.2); ALKALINE PHOSPHATASE 84 IU/L (42-121); ALT ALANINE AMINOTRANSFERASE 24 IU/L (10-60); AST ASPARTATE AMINOTRANSFERASE 24 IU/L (10-42); BILIRUBIN,TOTAL 0.8 mg/dL (0.2-1.0); BUN - BLOOD UREA NITROGEN 13 mg/dL (6-20); CALCIUM 9.3 mg/dL (8.5-10.3); CARBON DIOXIDE - CO2 27 mmol/L (21-32); CHLORIDE 105 mmol/L (101-111); CHOL/HDL RATIO 4.8 (<5.0); CHOLESTEROL 157 mg/dL; CREATININE 0.7 mg/dL (0.6-1.2); GFR - MDRD 115 (>89); GLUCOSE 122 mg/dL (70-100); HDL CHOLESTEROL 33 mg/dL; LDL CHOLESTEROL,CALCULATED 82 mg/dL; LDL/HDL RATIO 2.5 (<3.6); POTASSIUM 4.3 mmol/L (3.5-5.0); SODIUM 139 mmol/L (135-145); TOTAL PROTEIN 7.8 g/dL (6.7-8.2); TRIGLYCERIDES 210 mg/dL; VLDL CHOLESTEROL 42 mg/dL
== END 2023-02-26 08:36 | disposition home or self-care (01) ==
LOC: LAB.N 08:35
PROVIDERS: ATTEND Physician Assistant
DX: I10 Essential (primary) hypertension (principal); E78.1 Pure hyperglyceridemia; E78.5 Hyperlipidemia, unspecified
CPT/HCPCS: 36415; 80053; 80061; 83721

== ENCOUNTER 2023-09-03 08:34 | Outpatient (CLI) | payer OTHER ==
[2023-09-03 12:21] LABS: BASOPHILS # (AUTO) 0.1 10^3/uL (0.0-0.1); BASOPHILS % (AUTO) 0.6 %; EOSINOPHILS # (AUTO) 0.2 10^3/uL (0.0-0.7); EOSINOPHILS % (AUTO) 1.2 %; HCT - HEMATOCRIT 50.3 % (42.0-52.0); LYMPHOCYTES # (AUTO) 3.1 10^3/uL (1.5-3.5); LYMPHOCYTES % (AUTO) 25.3 %; MEAN CORPUSCULAR HEMOGLOBIN 32.9 pg (27.0-31.0); MEAN CORPUSCULAR HGB CONC 33.8 g/dL (32.0-36.0); MEAN CORPUSCULAR VOLUME 97.5 fL (80.0-94.0); MEAN PLATELET VOLUME 11.2 fL (7.4-11.4); MONOCYTES # (AUTO) 1.1 10^3/uL (0.0-1.0); MONOCYTES % (AUTO) 8.7 %; NEUTROPHILS # (AUTO) 7.8 10^3/uL (1.5-6.6); NEUTROPHILS % (AUTO) 63.8 %; PLT - PLATELET COUNT 259 10^3/uL (130-450); RED BLOOD COUNT 5.16 10^6/uL (4.70-6.10); RED CELL DISTRIBUTION WIDTH 13.3 % (12.0-15.0); WHITE BLOOD COUNT 12.2 x10^3/uL (4.8-10.8)
[2023-09-03 13:07] LABS: ALBUMIN 4.3 g/dL (3.2-5.5); ALBUMIN/GLOBULIN RATIO 1.5 (1.0-2.2); ALKALINE PHOSPHATASE 83 IU/L (42-121); ALT ALANINE AMINOTRANSFERASE 15 IU/L (10-60); AST ASPARTATE AMINOTRANSFERASE 16 IU/L (10-42); BILIRUBIN,TOTAL 0.6 mg/dL (0.2-1.0); BUN - BLOOD UREA NITROGEN 11 mg/dL (6-20); CALCIUM 9.2 mg/dL (8.5-10.3); CARBON DIOXIDE - CO2 26 mmol/L (21-32); CHLORIDE 105 mmol/L (101-111); CHOL/HDL RATIO 5.1 (<5.0); CHOLESTEROL 174 mg/dL; CREATININE 0.7 mg/dL (0.6-1.3); GFR - MDRD 114 (>89); GLUCOSE 125 mg/dL (74-104); HDL CHOLESTEROL 34 mg/dL; POTASSIUM 4.2 mmol/L (3.5-4.5); SODIUM 138 mmol/L (135-145); TOTAL PROTEIN 7.1 g/dL (6.4-8.9)
[2023-09-03 14:21] LABS: THYROID STIMULATING HORMONE 1.61 uIU/mL (0.34-5.60)
[2023-09-03 14:36] LABS: LDL CHOLESTEROL,CALCULATED 95 mg/dL; LDL/HDL RATIO 2.8 (<3.6); TRIGLYCERIDES 225 mg/dL (48-352); VLDL CHOLESTEROL 45 mg/dL
[2023-09-03 20:39] LABS: ESTIMATED AVERAGE GLUCOSE 128 mg/dL (70-100); HEMOGLOBIN A1c% 6.1 % (4.27-6.07)
== END 2023-09-03 08:35 | disposition home or self-care (01) ==
LOC: LAB.N 08:34
PROVIDERS: ATTEND Physician Assistant
DX: E78.1 Pure hyperglyceridemia (principal); R73.03 Prediabetes; Z12.5 Encounter for screening for malignant neoplasm of prostate; I10 Essential (primary) hypertension
CPT/HCPCS: 36415; 80053; 80061; 83036; 83721; 84153; 84443; 85025

== ENCOUNTER 2023-09-15 08:40 | Outpatient (CLI) | payer OTHER ==
--- NOTE | 2023-09-15 11:27 | CT Report ---
PROCEDURE: Head WO INDICATIONS: HEADACHE, VERTIGO TECHNIQUE: Noncontrast 4.5 mm thick angled axial sections acquired from the foramen magnum to the vertex. For r adiation dose reduction, the following was used: automated exposure control, adjustment of mA and/or kV according to patient size. COMPARISON: None. FINDINGS: Image quality: Excellent. CSF spaces: Basal cisterns are patent. No extra-axial fluid collections. Ventricles are normal in size and shape. Brain: No midline shift. No intracranial masses or hemorrhage. Tompkins-white matter interface is norm al. Skull and face: Calvarium and visualized facial bones are intact, without suspicious lesions. Sinuses: Visualized sinuses and mastoids are clear. IMPRESSION: No acute intracranial pathology. Reviewed by: Irlanda Adorno MD on 09/15/2023 11:26 AM [facility] Approved by: Irlanda Adorno MD on 09/15/2023 11:26 AM [facility] Station ID: [id number]
== END 2023-09-15 08:41 | disposition home or self-care (01) ==
LOC: DI 08:40
PROVIDERS: ATTEND Physician Assistant
DX: R42 Dizziness and giddiness (principal); G44.89 Other headache syndrome

== ENCOUNTER 2024-03-01 08:59 | Outpatient (CLI) | payer OTHER ==
[2024-03-01 12:13] LABS: BASOPHILS # (AUTO) 0.1 10^3/uL (0.0-0.1); BASOPHILS % (AUTO) 0.8 %; EOSINOPHILS # (AUTO) 0.1 10^3/uL (0.0-0.7); EOSINOPHILS % (AUTO) 1.2 %; HCT - HEMATOCRIT 47.6 % (42.0-52.0); HGB - HEMOGLOBIN 16.6 g/dL (14.0-18.0); LYMPHOCYTES # (AUTO) 3.8 10^3/uL (1.5-3.5); LYMPHOCYTES % (AUTO) 32.6 %; MEAN CORPUSCULAR HEMOGLOBIN 33.9 pg (27.0-31.0); MEAN CORPUSCULAR HGB CONC 34.9 g/dL (32.0-36.0); MEAN CORPUSCULAR VOLUME 97.3 fL (80.0-94.0); MONOCYTES # (AUTO) 1.1 10^3/uL (0.0-1.0); MONOCYTES % (AUTO) 9.1 %; NEUTROPHILS # (AUTO) 6.5 10^3/uL (1.5-6.6); PLT - PLATELET COUNT 247 10^3/uL (130-450); RED BLOOD COUNT 4.89 10^6/uL (4.70-6.10); WHITE BLOOD COUNT 11.6 x10^3/uL (4.8-10.8)
[2024-03-01 12:22] LABS: ESTIMATED AVERAGE GLUCOSE 126 mg/dL (70-100)
[2024-03-01 12:28] LABS: ALBUMIN 4.3 g/dL (3.2-5.5); ALBUMIN/GLOBULIN RATIO 1.5 (1.0-2.2); ALKALINE PHOSPHATASE 85 IU/L (42-121); ALT ALANINE AMINOTRANSFERASE 21 IU/L (10-60); AST ASPARTATE AMINOTRANSFERASE 20 IU/L (10-42); BILIRUBIN,TOTAL 0.5 mg/dL (0.2-1.0); BUN - BLOOD UREA NITROGEN 14 mg/dL (6-20); CALCIUM 9.7 mg/dL (8.5-10.3); CARBON DIOXIDE - CO2 29 mmol/L (21-32); CHLORIDE 103 mmol/L (101-111); CHOL/HDL RATIO 4.9 (<5.0); CHOLESTEROL 163 mg/dL; CREATININE 0.7 mg/dL (0.6-1.3); GFR - MDRD 114 (>89); GLUCOSE 124 mg/dL (74-104); HDL CHOLESTEROL 33 mg/dL; LDL CHOLESTEROL,CALCULATED 63 mg/dL; LDL/HDL RATIO 1.9 (<3.6); POTASSIUM 4.3 mmol/L (3.5-4.5); SODIUM 138 mmol/L (135-145); TOTAL PROTEIN 7.2 g/dL (6.4-8.9); TRIGLYCERIDES 333 mg/dL (48-352); VLDL CHOLESTEROL 67 mg/dL
[2024-03-01 12:40] LABS: CREATININE,URINE 136.4 mg/dL; MICROALBUM/CREATININE RATIO,UR 15.4 ug/mg (<30.0); MICROALBUMIN,URINE 2.1 mg/dL
== END 2024-03-01 09:00 | disposition home or self-care (01) ==
LOC: LAB.N 08:59
PROVIDERS: ATTEND Physician Assistant
DX: R73.03 Prediabetes (principal); I10 Essential (primary) hypertension
CPT/HCPCS: 36415; 80053; 80061; 82043; 82570; 83036; 83721; 85025